=== PATIENT | female | born 1980 | race Caucasian/White ===

== ENCOUNTER 2017-12-14 05:05 | Emergency (ER) | payer SELFPAY ==
[~2017-12-14] VITALS: Ht 171.4 cm; Wt 106.0 kg
[~2017-12-14 05:05] MED LIST: CARB200T2 PO; DIVA500T2 PO; SERT20OR PO
[2017-12-14] MEDS ORDERED: TRAZ100T15 PO (05:29)
[2017-12-14] MEDS ORDERED: ALBUTEROL/IPRATROPIUM 2.5MG/0.5MG, 3 ML ONE ×2 (05:56→06:39)
[2017-12-14] MEDS ORDERED: ALBUTEROL/IPRATROPIUM 2.5MG/0.5MG, 3 ML NPPB ONE (06:00)
[2017-12-14] MEDS ORDERED: SODIUM CHLORIDE FLUSH 10ML SYR IVF ONE (06:00)
[2017-12-14] MEDS ORDERED: SODIUM CHLORIDE 0.9% 1,000ML IVBOLUS ONE (06:00)
[2017-12-14 06:13] LABS: BASOPHILS # (AUTO) 0.03 x10^3/uL (0-0.1); BASOPHILS % (AUTO) 0 % (0-1); EOSINOPHILS # (AUTO) 0.25 x10^3/uL (0-0.4); EOSINOPHILS % (AUTO) 3 % (1-7); LYMPHOCYTES # (AUTO) 0.84 x10^3/uL (1-3.4); LYMPHOCYTES % (AUTO) 9 % (22-44); MD NO; MEAN CORPUSCULAR HEMOGLOBIN 32.3 pg (27.0-34.8); MEAN CORPUSCULAR HGB CONC 34.4 g/dL (32.4-35.8); MEAN CORPUSCULAR VOLUME 93.8 fL (80-100); MEAN PLATELET VOLUME 7.8 fL (7.4-10.4); MONOCYTES # (AUTO) 0.56 x10^3/uL (0.2-0.8); MONOCYTES % (AUTO) 6 % (2-9); NEUTROPHILS # (AUTO) 7.37 x10^3/uL (1.8-6.8); NEUTROPHILS % (AUTO) 81 % (42-75); PLATELET COUNT 233 x10^3/uL (130-400); RED BLOOD COUNT 4.61 x10^6/uL (3.82-5.3); RED CELL DISTRIBUTION WIDTH 13.2 % (9.6-15.2)
[2017-12-14 06:22] LABS: ALBUMIN 3.4 g/dL (3.4-5.0); ANION GAP 6 mmol/L (5-15); CALCIUM 8.4 mg/dL (8.5-10.1); CHLORIDE 105 mmol/L (98-107); CREATININE 0.96 mg/dL (0.55-1.02)
[2017-12-14 06:24] LABS: RAPID INFLUENZA A Negative (Negative); RAPID INFLUENZA B Negative (Negative)
[2017-12-14 06:57] LABS: TROPONIN I < 0.015 ng/mL (0.000-0.045)
[2017-12-14] MEDS ORDERED: ALBUTEROL/IPRATROPIUM 2.5MG/0.5MG, 3 ML NPPB SCH (07:00)
[2017-12-14 08:17] VITALS: BP 128/60
== END 2017-12-14 09:05 | disposition home or self-care (01) ==
LOC: ED 07:20
DX: J00 Acute nasopharyngitis [common cold] (principal); J20.8 Acute bronchitis due to other specified organisms
CPT/HCPCS: 36415; 71045; 80048; 82040; 82962; 83605; 83880; 84484; 85025; 85379; 87040; 87400; 93005; 94640; 96360; 99285; J7030; J7512; J7620

== ENCOUNTER 2018-03-10 18:26 | Emergency (ER) | payer SELFPAY ==
[~2018-03-10] VITALS: Ht 170.2 cm; Wt 104.7 kg
[~2018-03-10 18:26] MED LIST changes: +SERT100T PO; -SERT20OR PO; +TRAZ100T15 PO
[2018-03-10 18:30] VITALS: BP 167/99
[2018-03-10 19:43] LABS: BASOPHILS # (AUTO) 0.03 x10^3/uL (0-0.1); BASOPHILS % (AUTO) 1 % (0-1); EOSINOPHILS # (AUTO) 0.43 x10^3/uL (0-0.4); EOSINOPHILS % (AUTO) 7 % (1-7); LYMPHOCYTES # (AUTO) 2.67 x10^3/uL (1-3.4); LYMPHOCYTES % (AUTO) 40 % (22-44); MD NO; MEAN CORPUSCULAR HEMOGLOBIN 31.8 pg (27.0-34.8); MEAN CORPUSCULAR HGB CONC 33.8 g/dL (32.4-35.8); MEAN PLATELET VOLUME 7.5 fL (7.4-10.4); MONOCYTES # (AUTO) 0.55 x10^3/uL (0.2-0.8); MONOCYTES % (AUTO) 8 % (2-9); NEUTROPHILS # (AUTO) 3.01 x10^3/uL (1.8-6.8); NEUTROPHILS % (AUTO) 45 % (42-75); PLATELET COUNT 321 x10^3/uL (130-400); RED BLOOD COUNT 4.55 x10^6/uL (3.82-5.3); RED CELL DISTRIBUTION WIDTH 13.5 % (9.6-15.2)
[2018-03-10 19:50] LABS: ANION GAP 6 mmol/L (5-15); CALCIUM 8.6 mg/dL (8.5-10.1); CHLORIDE 108 mmol/L (98-107); CREATININE 0.87 mg/dL (0.55-1.02)
== END 2018-03-10 20:38 | disposition home or self-care (01) ==
LOC: ED 20:35
DX: S46.912A Strain of unspecified muscle, fascia and tendon at shoulder and upper arm level, left arm, initial encounter (principal); Z88.2 Allergy status to sulfonamides; X58.XXXA Exposure to other specified factors, initial encounter; Y93.89 Activity, other specified; Y92.89 Other specified places as the place of occurrence of the external cause; Y99.8 Other external cause status
CPT/HCPCS: 36415; 72050; 80048; 85025; 93005; 99285

== ENCOUNTER 2018-04-22 05:47 | Emergency (ER) | payer SELFPAY ==
[~2018-04-22] VITALS: Ht 170.2 cm; Wt 102.9 kg
[2018-04-22 05:48] VITALS: BP 145/85
[2018-04-22] MEDS ORDERED: ERYTHROMYCIN OPHTH 0.5%, 1GM LEFTEYE ONE (06:30)
== END 2018-04-22 06:44 | disposition home or self-care (01) ==
LOC: ED 06:35
DX: H10.022 Other mucopurulent conjunctivitis, left eye (principal)
CPT/HCPCS: 99283

== ENCOUNTER 2018-05-07 07:23 | Emergency (ER) | payer SELFPAY ==
[~2018-05-07] VITALS: Ht 170.2 cm; Wt 103.4 kg
[2018-05-07 07:25] VITALS: BP 116/72
== END 2018-05-07 08:06 | disposition home or self-care (01) ==
LOC: ED 08:03
DX: H10.13 Acute atopic conjunctivitis, bilateral (principal)
CPT/HCPCS: 99283

== ENCOUNTER 2019-06-11 21:04 | Emergency (ER) | payer SELFPAY ==
[~2019-06-11] VITALS: Ht 170.2 cm; Wt 100.0 kg
[2019-06-11 22:36] VITALS: BP 127/73
== END 2019-06-11 22:38 | disposition home or self-care (01) ==
LOC: ED 21:59
DX: S06.0X9A Concussion with loss of consciousness of unspecified duration, initial encounter (principal); F10.120 Alcohol abuse with intoxication, uncomplicated; Y90.0 Blood alcohol level of less than 20 mg/100 ml; W01.0XXA Fall on same level from slipping, tripping and stumbling without subsequent striking against object, initial encounter; Y93.89 Activity, other specified; Y92.410 Unspecified street and highway as the place of occurrence of the external cause; Y99.8 Other external cause status
CPT/HCPCS: 70450; 99284

== ENCOUNTER 2019-06-13 11:20 | Emergency (ER) | payer SELFPAY ==
[~2019-06-13] VITALS: Ht 170.2 cm; Wt 107.9 kg
[2019-06-13 11:25] VITALS: BP 156/100
== END 2019-06-13 13:01 | disposition home or self-care (01) ==
LOC: ED 12:58
DX: S80.02XA Contusion of left knee, initial encounter (principal); S60.052A Contusion of left little finger without damage to nail, initial encounter; W01.0XXA Fall on same level from slipping, tripping and stumbling without subsequent striking against object, initial encounter; Y93.89 Activity, other specified; Y92.89 Other specified places as the place of occurrence of the external cause; Y99.8 Other external cause status
CPT/HCPCS: 99283

== ENCOUNTER 2020-02-12 08:27 | Emergency (ER) | payer MEDICAID ==
[~2020-02-12] VITALS: Ht 170.2 cm; Wt 112.6 kg
[~2020-02-12 08:27] MED LIST changes: +TRAZ-175 PO; -TRAZ100T15 PO
[2020-02-12 08:38] VITALS: BP 144/84
--- NOTE | 2020-02-12 08:48 | NUR ---
PT TO ROOM.
--- NOTE | 2020-02-12 08:55 | NUR ---
PT GIVEN GOWN. THINKS SHES PREGRNANT. OOB FOR UA. LMP 1 MONTH AGO APPROX. STS STOPPED TAKING ALL MEDS INCL SEIZURE MEDS X1 WK BC THINKS SHE MAY BE . CALL MARK. AWAITING MD.
--- NOTE | 2020-02-12 09:34 | NUR ---
SUSU WAS IN ROOM, UA SENT. PT SLEEPING.
[2020-02-12 09:40] LABS: HCG UR SG 1.028 (1.003-1.030)
[2020-02-12 09:41] LABS: MICROSCOPIC INDICATED
[2020-02-12 09:51] LABS: CULTURE INDICATED? YES
--- NOTE | 2020-02-12 10:19 | NUR ---
TASK RN: PT D/C WITH DC SUMMARY AND SCRIPTS. ANTIBIOTIC EDUCATION PROVIDED PT D/C WITH D/C WITH STEADY GAIT TO REGISTRATION DESK FOR DC HOME. PT DENIES ANY OTHER NEEDS PERTAINING TO THIS VISIT
== END 2020-02-12 10:23 | disposition home or self-care (01) ==
LOC: ED 09:04
DX: N30.01 Acute cystitis with hematuria (principal); R11.0 Nausea
CPT/HCPCS: 81001; 81025; 87077; 87086; 87186; 99283

== ENCOUNTER 2020-02-24 11:05 | Emergency (ER) | payer MEDICAID ==
[~2020-02-24] VITALS: Ht 170.2 cm; Wt 110.0 kg
[2020-02-24 11:13] VITALS: BP 120/61
--- NOTE | 2020-02-24 11:39 | NUR ---
pt is in a comfortable position on an e.r. gurney. warm blanket provided per request. i am awaiting orders prior to any further interventions.
== END 2020-02-24 12:05 | disposition home or self-care (01) ==
LOC: ED 11:48
DX: M54.6 Pain in thoracic spine (principal); M54.5 Low back pain
CPT/HCPCS: 99283

== ENCOUNTER 2020-03-10 10:28 | Emergency (ER) | payer MEDICAID ==
[~2020-03-10] VITALS: Ht 170.2 cm; Wt 108.1 kg
[2020-03-10 10:32] VITALS: BP 152/83
--- NOTE | 2020-03-10 10:47 | NUR ---
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
== END 2020-03-10 11:39 | disposition home or self-care (01) ==
LOC: ED 11:00
DX: J02.0 Streptococcal pharyngitis (principal); H92.03 Otalgia, bilateral
CPT/HCPCS: 87880; 99283

== ENCOUNTER 2020-05-31 20:20 | Emergency (ER) | payer MEDICAID ==
[~2020-05-31] VITALS: Ht 170.2 cm; Wt 118.7 kg
[2020-05-31 20:51] VITALS: BP 145/82
== END 2020-05-31 22:10 | disposition home or self-care (01) ==
LOC: ED 21:50
DX: R22.1 Localized swelling, mass and lump, neck (principal)
CPT/HCPCS: 99281

== ENCOUNTER 2020-08-13 08:13 | Emergency (ER) | payer MEDICAID ==
[~2020-08-13] VITALS: Ht 171.4 cm; Wt 119.9 kg
[2020-08-13] MEDS ORDERED: DEXAMETHASONE 4 MG TABLET PO ONE (09:00)
[2020-08-13] MEDS ORDERED: DEXAMETHASONE 4 MG TABLET ONE (09:23)
--- NOTE | 2020-08-13 09:27 | NUR ---
BEATRIZ JAMES AT BEDSIDE, POC DISCUSSED AND ORDERS REC'D. PT MED NOTED. NAD NOTED, CALL LIGHT W/I REACH
[2020-08-13 09:36] VITALS: BP 142/97
--- NOTE | 2020-08-13 09:37 | NUR ---
Patient/Caregiver given discharge instructions and they have confirmed that they understand the instructions. Patient ambulatory with steady gait.
== END 2020-08-13 09:38 | disposition home or self-care (01) ==
LOC: ED 09:01
DX: J20.8 Acute bronchitis due to other specified organisms (principal); Z20.828 Contact with and (suspected) exposure to other viral communicable diseases; B34.9 Viral infection, unspecified
CPT/HCPCS: 36415; 71045; 87635; 99284